=== PATIENT | female | born 2005 | race Caucasian/White ===

== ENCOUNTER 2025-08-28 06:34 | Outpatient (REF) | payer OTHER, SELFPAY ==
--- NOTE | ~2025-08-28 | US_ITS ---
EXAMINATION: US PELVIS TRANSABDOMINAL AND TRANSVAGINAL HISTORY: ? PCOS COMPARISON: There are no prior studies available for comparison. TECHNIQUE: Transabdominal and endovaginal real-time 2D villalobos-scale ultrasound was performed. FINDINGS: Uterus: The uterus is normal in size, measuring 8.5 x 3.4 x 4.3 cm. Myometrium has a normal echotexture. No fibroids are identified. Endometrium: The endometrial stripe measures 8 mm in thickness. Right ovary: The right ovary measures 3.0 x 2.5 x 2.1 cm. The right ovary is normal in size and echotexture. There is a 2.2 x 1.7 x 1.7 cm dominant follicle. Left ovary: The left ovary measures 2.9 x 2.0 x 1.8 cm. The left ovary is normal in size and echotexture. There is a 1.5 x 1.1 0.5 cm follicle. Pelvic fluid: none. US/US pelvic and transvaginal IMPRESSION: Unremarkable pelvic ultrasound. Electronically signed by: Casa Katz MD 08/28/2025 12:32 PM [facility]
== END 2025-08-28 06:35 | disposition home or self-care (01) ==
LOC: HO.UMASIMG 06:34
PROVIDERS: Visit Provider Family Medicine
DX: N94.6 Dysmenorrhea, unspecified (principal)
CPT/HCPCS: 76830; 76856

== ENCOUNTER → 2025-08-28 11:46 | Outpatient (BNV) | payer OTHER, SELFPAY | PROVIDERS: Visit Provider Radiology Diagnostic Radiology | DX: N83.02 Follicular cyst of left ovary (principal); Z03.89 Encounter for observation for other suspected diseases and conditions ruled out | CPT/HCPCS: 76830; 76856 ==